=== PATIENT | female | born 1955 | race American Indian/Alaskan Native ===

== ENCOUNTER 2016-06-29 02:58 | Emergency (ER) | payer OTHER | END 2016-06-29 05:45 | disposition home or self-care (01) | DX: K80.20 Calculus of gallbladder without cholecystitis without obstruction (principal) ==

== ENCOUNTER 2016-11-09 09:11 | Outpatient (CLI) | payer OTHER ==
[2016-11-09 10:08] LABS: BASOPHILS % (AUTO) 0.6 %; EOSINOPHILS # (AUTO) 0.4 10^3/uL (0.0-0.7); EOSINOPHILS % (AUTO) 5.8 %; HCT - HEMATOCRIT 39.5 % (37.0-47.0); HGB - HEMOGLOBIN 13.4 g/dL (12.0-16.0); LYMPHOCYTES # (AUTO) 2.3 10^3/uL (1.5-3.5); MEAN CORPUSCULAR HEMOGLOBIN 31.2 pg (27.0-31.0); MEAN CORPUSCULAR HGB CONC 33.9 g/dL (32.0-36.0); MONOCYTES # (AUTO) 0.5 10^3/uL (0.0-1.0); MONOCYTES % (AUTO) 7.9 %; NEUTROPHILS # (AUTO) 3.5 10^3/uL (1.5-6.6); NEUTROPHILS % (AUTO) 51.7 %; RED BLOOD COUNT 4.29 10^6/uL (4.20-5.40); RED CELL DISTRIBUTION WIDTH 13.9 % (12.0-15.0); UNCORRECTED WHITE BLOOD COUNT 6.8 x10^3/uL; WHITE BLOOD COUNT 6.8 x10^3/uL (4.8-10.8)
[2016-11-09 10:26] LABS: BILIRUBIN,TOTAL 0.5 mg/dL (0.2-1.0); BUN - BLOOD UREA NITROGEN 10 mg/dL (6-20); CALCIUM 9.3 mg/dL (8.5-10.3); CARBON DIOXIDE - CO2 27 mmol/L (21-32); CHLORIDE 101 mmol/L (101-111); CHOLESTEROL 277 mg/dL; CREATININE 0.6 mg/dL (0.4-1.0); GFR - MDRD 101 (>89); GLUCOSE 115 mg/dL (70-100); HDL CHOLESTEROL 46 mg/dL; POTASSIUM 3.6 mmol/L (3.5-5.0); SODIUM 137 mmol/L (135-145); TOTAL PROTEIN 8.1 g/dL (6.7-8.2); TRIGLYCERIDES 228 mg/dL; VLDL CHOLESTEROL 46 mg/dL
== END 2016-11-09 09:12 | disposition home or self-care (01) ==
LOC: LAB 09:11
PROVIDERS: ATTEND Internal Medicine
DX: Z00.00 Encounter for general adult medical examination without abnormal findings (principal); J45.909 Unspecified asthma, uncomplicated; M54.30 Sciatica, unspecified side; Z79.899 Other long term (current) drug therapy
CPT/HCPCS: 36415; 80053; 80061; 84443; 85025; 86803

== ENCOUNTER 2017-11-28 13:12 | Outpatient (CLI) | payer SELFPAY ==
[2017-11-28 14:30] LABS: BASOPHILS % (AUTO) 0.4 %; EOSINOPHILS # (AUTO) 0.4 10^3/uL (0.0-0.7); EOSINOPHILS % (AUTO) 5.5 %; HGB - HEMOGLOBIN 13.9 g/dL (12.0-16.0); LYMPHOCYTES # (AUTO) 2.3 10^3/uL (1.5-3.5); LYMPHOCYTES % (AUTO) 35.2 %; MEAN CORPUSCULAR HEMOGLOBIN 31.1 pg (27.0-31.0); MEAN CORPUSCULAR HGB CONC 33.4 g/dL (32.0-36.0); MEAN CORPUSCULAR VOLUME 93.1 fL (81.0-99.0); MONOCYTES # (AUTO) 0.5 10^3/uL (0.0-1.0); MONOCYTES % (AUTO) 7.3 %; NEUTROPHILS # (AUTO) 3.4 10^3/uL (1.5-6.6); NEUTROPHILS % (AUTO) 51.6 %; PLT - PLATELET COUNT 252 10^3/uL (130-450); RED BLOOD COUNT 4.47 10^6/uL (4.20-5.40); RED CELL DISTRIBUTION WIDTH 13.7 % (12.0-15.0); WHITE BLOOD COUNT 6.6 x10^3/uL (4.8-10.8)
[2017-11-28 14:47] LABS: ALBUMIN 3.9 g/dL (3.2-5.5); ALBUMIN/GLOBULIN RATIO 0.9 (1.0-2.2); ALKALINE PHOSPHATASE 69 IU/L (42-121); ALT ALANINE AMINOTRANSFERASE 22 IU/L (10-60); AST ASPARTATE AMINOTRANSFERASE 23 IU/L (10-42); BILIRUBIN,TOTAL 0.5 mg/dL (0.2-1.0); BUN - BLOOD UREA NITROGEN 16 mg/dL (6-20); CALCIUM 9.3 mg/dL (8.5-10.3); CARBON DIOXIDE - CO2 27 mmol/L (21-32); CHLORIDE 100 mmol/L (101-111); CHOL/HDL RATIO 5.3 (<4.4); CHOLESTEROL 252 mg/dL; CREATININE 0.6 mg/dL (0.4-1.0); GFR - MDRD 101 (>89); GLUCOSE 121 mg/dL (70-100); HDL CHOLESTEROL 48 mg/dL; LDL CHOLESTEROL,CALCULATED 154 mg/dL; LDL/HDL RATIO 3.2 (<4.4); SODIUM 135 mmol/L (135-145); TOTAL PROTEIN 8.4 g/dL (6.7-8.2); VLDL CHOLESTEROL 50 mg/dL
[2017-11-28 15:10] LABS: HB2 TOTAL 15.1 g/dL; HEMOGLOBIN A1C 0.53 g/dL; HEMOGLOBIN A1C % 5.4 % (4.6-6.2)
== END 2017-11-28 13:13 | disposition home or self-care (01) ==
LOC: LAB 13:12
PROVIDERS: ATTEND Internal Medicine
DX: J45.909 Unspecified asthma, uncomplicated (principal); R73.01 Impaired fasting glucose; K80.20 Calculus of gallbladder without cholecystitis without obstruction; M54.30 Sciatica, unspecified side; L30.9 Dermatitis, unspecified; R19.7 Diarrhea, unspecified; I73.00 Raynaud's syndrome without gangrene; Z13.6 Encounter for screening for cardiovascular disorders; Z79.899 Other long term (current) drug therapy
CPT/HCPCS: 36415; 80053; 80061; 83036; 83721; 84443; 85025; 86038

== ENCOUNTER 2020-06-19 22:15 | Emergency (ER) | payer SELFPAY ==
--- NOTE | 2020-06-19 22:53 | ED Physician Documentation ---
PD HPI SKIN - Stated complaint Stated Complaint: RASH ON BODY - Chief complaint Chief Complaint: Wound - History obtained from History obtained from: Patient - History of Present Illness Timing - onset: How many days ago (6) Timing - details: Gradual onset, Constant, Waxing and waning Pain level max: 0 Pain level now: 0 Location: Bodywide Quality / character: Itchy Improved by: Benadryl (both PO and topical) Associated symptoms: No: Fever, Myalgias, Facial swelling, Dyspnea Contributing factors: Unknown Similar symptoms before: Has not had sx before Recently seen: Not recently seen - Additional information Additional information: c/o 6 days of diffuse pruritic rash. denies h/o similar symptoms and no apparent inciting event/factors; no new medications, soaps, detergents. she has had decreasing relief with PO and topical benadryl. denies oropharyngeal swelling and denies dyspnea, cough Review of Systems Constitutional: denies: Fever Respiratory: denies: Dyspnea, Cough Skin: reports: Rash PD PAST MEDICAL HISTORY - Past Medical History Past Medical History: Yes Cardiovascular: None Respiratory: Asthma, Sleep apnea Endocrine/Autoimmune: None GI: None [employer]: None : Incontinence HEENT: None Psych: None Musculoskeletal: Other Derm: Eczema - Past Surgical History Past Surgical History: Yes Ortho: Other - Present Medications Home Medications: Ambulatory Orders Medication Instructions Recorded Confirmed Gabapentin 1,200 mg PO BID 03/04/16 06/29/16 Albuterol Sulfate [Proair 90 mcg INH PRN 06/19/20 Respiclick] hydrOXYzine PAMOATE [Vistaril] 25 - 50 mg PO Q6H PRN #20 06/19/20 predniSONE [Deltasone] 40 mg PO DAILY 4 Days #8 tablet 06/19/20 - Allergies Allergies/Adverse Reactions: Allergies Allergy/AdvReac Type Severity Reaction Status Date / Time Penicillins Allergy Unknown Verified 06/19/20 22:27 - Social History Does the pt smoke?: No Smoking Status: Never smoker Does the pt drink ETOH?: Yes Does the pt have substance abuse?: No - Immunizations Immunizations are current?: Yes - POLST Patient has POLST: No PD ED PE NORMAL - Vitals Vital signs reviewed: Yes - General General: Alert and oriented X 3, No acute distress, Well developed/nourished - HEENT HEENT: Pharynx benign - Respiratory Respiratory: No respiratory distress, Clear bilaterally PD ED PE EXPANDED - Derm Derm: Urticaria (face, BUE, chest. few hives on back, abdomen, palms spared. no enanthem, no oropharyngeal swelling) Results - Vitals Vitals: Vital Signs - 24 hr 06/19/20 06/19/20 06/19/20 22:25 22:31 23:22 Temperature 36.6 C 36.6 C 36.6 C Heart Rate 108 H 108 H 88 Respiratory 17 17 18 Rate Blood Pressure 146/92 H 146/92 H 140/87 H O2 Saturation 96 96 98 Oxygen O2 Source Room air PD MEDICAL DECISION MAKING - ED course Complexity details: considered differential, d/w patient ED course: presents with nearly 1 week of pruritic hives, no apparent trigger and no h/o similar symptoms. Given 10mg PO decadron, as well as po vistaril with prescriptions for vistaril and prednisone Departure - Departure Disposition: 01 Home, Self Care Clinical Impression: Urticaria Condition: Good Instructions: ED Urticaria Follow-Up: Rosalia Denny MD [Primary Care Provider] - (3-5 days if symptoms have not resolved ) Prescriptions: predniSONE [Deltasone] 40 mg PO DAILY 4 Days #8 tablet hydrOXYzine PAMOATE [Vistaril] 25 - 50 mg PO Q6H PRN #20 PRN Reason: Itching Discharge Date/Time: 06/19/20 23:22
[2020-06-19] MEDS ORDERED: DEXAMETHASONE 10 MG/ML VIAL PO STA (23:09)
[2020-06-19] MEDS ORDERED: CHERRY SYRUP 10 ML UDC PO ONE (23:09)
[2020-06-19] MEDS ORDERED: hydrOXYzine PAMOATE 25 MG CAPSULE PO STA (23:09)
[2020-06-19 23:23] VITALS: BP 140/87
--- OUTSIDE RECORDS SUMMARY | 2020-06-24 02:22 | EXTERNAL MEDICAL SUMMARY RPT | Continuity of Care Document ---
:1955 Demographics Phone Unavailable Preferred Language Unknown Marital Status Unknown Jainism Affiliation Unknown Race Unknown Ethnic Group Unknown Author Organization [facility] Address [address] [phone] Phone Social History date description facility [id number]
== END 2020-06-19 23:22 | disposition home or self-care (01) ==
LOC: ED 22:15
DX: L50.9 Urticaria, unspecified (principal)
CPT/HCPCS: 99282; 99283; A9270